=== PATIENT | male | born 1950 | race Caucasian/White ===

== ENCOUNTER → 2016-11-01 | Outpatient (CLI) | payer OTHER ==
[~2016-11-01] MED LIST: ALTACE PO; ALTACE2.5 MG PO; ASPIRIN PO; ATARAX PO; CRESTOR PO; ECOTRIN325 MG PO; LOPRESSOR PO; MEDROL PO; TOPIRAMATE100 MG PO; UNK MEDS; WALGREENS PHARMACY
--- NOTE | ~2016-11-01 | MR165 ---
[facility] A Service [facility] RADIOLOGY TEXT RESULTS PATIENT: LUZAM SULLIVAN LOCATION: [facility] : 52 UNIT #: [id number] AGE: [address]: BRIANA GARCIA APRN SEX: M ORDER DR: [id number] [place] [id number] O MR#: [id number] Acc #: [id number] NAME: LUZMA SULLIVAN : 1950 SEX: M STUDY DATE/TIME: 11/01/2016 13:55 UNIT: [facility] ROOM: STUDY DESCRIPTION: MR Shoulder Wo Contrast Rt Attending Physician: Briana Garcia Aprn Referring Physician: Briana Garcia Aprn Ordering Physician: Briana Garcia Aprn Primary Care Physician: Ruy Vogel M.D. MRI CENTER REPORT This report is preliminary unless electronic signature is present. EXAM MRI of the right shoulder without contrast HISTORY Right shoulder pain for 2-3 months. Limited range of motion. COMPARISON Right shoulder films 10/16/2016 TECHNIQUE Multiplanar, multiecho imaging was performed of the right shoulder utilizing a high field magnet and dedicated protocol. FINDINGS Small developing subacromial spur. AC joint unremarkable. Marrow signal within the proximal humerus unremarkable except for degenerative cystic changes at the cuff insertion along the greater tuberosity. Joint fluid within normal limits. The rotator cuff appears intact without tendinopathy or tear. No muscle atrophy or edema. The superior labrum, biceps anchor, and long tendon of the biceps appear normal. The anterior and posterior labrum unremarkable. Extraarticular soft tissues unremarkable. IMPRESSION 1. Probable small developing subacromial spur. 2. No evidence of rotator cuff tear or significant arthropathy. 3. Enthesopathic degenerative cystic changes of greater tuberosity. Dictated by.Adriane. Ramandeep Sexton M.D. [facility] A Service [facility] RADIOLOGY TEXT RESULTS PATIENT: LUZMA SULLIVAN LOCATION: [facility] : 52 UNIT #: [id number] AGE: [address]: BRIANA GARCIA APRN SEX: M ORDER DR: THIS IS AN ELECTRONICALLY VERIFIED REPORT Ramandeep Sexton M.D. at 11/02/2016 4:04 PM Pati TD: 11/02/2016 12:11 JOB #: [id number] MRI CENTER REPORT Page 1 of 1
== END | disposition home or self-care (01) ==
LOC: SMRI 10:49
DX: M75.101 Unspecified rotator cuff tear or rupture of right shoulder, not specified as traumatic (principal)
CPT/HCPCS: 73221